=== PATIENT | male | born 1995 | race Hispanic/Latino ===

== ENCOUNTER 2017-12-02 03:16 | Emergency (ER) | payer BC, OTHER ==
[2017-12-02 03:48] LABS: RAPID GROUP A STREP NEGATIVE (NEGATIVE)
[2017-12-02] MEDS ORDERED: GUAIFENESIN-DM 200/20 MG 10 ML ONE (04:11)
[2017-12-02] MEDS ORDERED: IBUPROFEN 600 MG TABLET ONE (04:12)
== END 2017-12-02 04:25 | disposition home or self-care (01) ==
LOC: EDH 03:16
DX: J06.9 Acute upper respiratory infection, unspecified (principal); Z72.0 Tobacco use
CPT/HCPCS: 87804; 87880